=== PATIENT | female | born 1965 | race Caucasian/White ===

== ENCOUNTER 2020-11-04 20:36 | Observation (INO) ==
[2020-11-04] MEDS ORDERED: Isovue-370 500 ML BOTTLE IVP ONE (20:58)
[2020-11-04] MEDS ORDERED: Ondansetron 4 MG/2 ML VIAL IVP STA (20:59)
[2020-11-04 21:43] LABS: Lipase 88 Units/L (11-82)
[2020-11-04 21:45] LABS: Troponin I < 0.03 ng/mL (< 0.04)
[2020-11-04] MEDS ORDERED: Morphine Sulfate 2 MG/ML SYRINGE IVP STA (22:29)
[2020-11-04] MEDS ORDERED: *HR* OxyCODONE Immed Rel 5 MG TABLET PO PRN (23:40)
[2020-11-04] MEDS ORDERED: Acetaminophen 325 MG TABLET PO PRN (23:40)
[2020-11-04] MEDS ORDERED: Ondansetron 4 MG/2 ML VIAL IVP PRN (23:40)
[2020-11-04] MEDS ORDERED: Naloxone 0.4 MG/ML INJ IVP PRN (23:40)
[2020-11-04] MEDS ORDERED: *HR* Promethazine 25 MG/ML VIAL IM PRN (23:40)
[2020-11-05] MEDS: Ringers Solution, Lactated 1,000 ML IVC SCH ×2 (00:26→07:57)
[2020-11-05] MEDS ORDERED: *HR* Heparin 5,000 UNIT/ML VIAL SQ SCH (06:00)
[2020-11-05 08:09] LABS: Prothrombin Time 11.5 Seconds (9.4-12.1)
[2020-11-05 08:14] LABS: Basophils % 0.5 %; Eosinophils # 0.2 K/mcL (0.0-0.6); Eosinophils % 2.8 %; Hematocrit 38.1 % (35.3-44.9); Hemoglobin 12.1 g/dL (11.5-15.4); Immature Granulocytes % 0.5 % (0-4); Lymphocytes # 2.3 K/mcL (0.6-4.6); Lymphocytes % 35.9 %; Mean Corpuscular HGB Conc 31.8 g/dL (31.6-35.5); Mean Corpuscular Hemoglobin 27.5 pg (28.0-33.3); Mean Corpuscular Volume 86.6 fL (83.0-100.0); Mean Platelet Volume 9.7 fL (9.4-12.4); Monocytes # 0.5 K/mcL (0.0-1.3); Monocytes % 8.3 %; Neutrophils # 3.3 K/mcL (1.6-8.9); Platelet Count 293 K/mcL (140-400); Red Cell Distribution Width 13.5 % (11.5-14.5); White Blood Count 6.4 K/mcL (4.3-11.1)
[2020-11-05 08:23] LABS: Alanine Aminotransferase 205 Units/L (7-52); Albumin 3.7 g/dL (3.5-5.7); Albumin/Globulin Ratio 1.4 (1.1-2.2); Alkaline Phosphatase 107 Units/L (34-104); Aspartate Amino Transferase 63 Units/L (13-39); BUN/Creatinine Ratio 17 (6-26); Bilirubin,Total 0.5 mg/dL (0.3-1.0); Blood Urea Nitrogen 12 mg/dL (6-20); Calcium 8.7 mg/dL (8.6-10.3); Carbon Dioxide 29 mEq/L (23-29); Chloride 103 mEq/L (98-107); Chol/HDL Ratio 5.8 (0-4.9); Cholesterol 221 mg/dL (< 200); Globulin 2.6 g/dL (2.4-3.5); Glucose 105 mg/dL (70-105); HDL Cholesterol 38 mg/dL (40-59); LDL Cholesterol,Calculated 140 mg/dL (< 100); Magnesium 2.1 mg/dL (1.6-2.6); Osmolality,Calculated 288 (280-300); Potassium 3.1 mEq/L (3.5-5.1); Sodium 139 mEq/L (136-145); Total Protein 6.3 g/dL (6.4-8.9); Triglycerides 217 mg/dL (< 150); eGFR For African Americans > 60 (> 60); eGFR For Non-African Americans > 60 (> 60)
[2020-11-05] MEDS ORDERED: Prochlorperazine 10 MG/2 ML VIAL IVP PRN ×2 (08:34→12:59)
[2020-11-05 08:46] LABS: Hepatitis B Surface Antigen Nonreactive (Nonreactive)
[2020-11-05 09:15] LABS: Hepatitis B Core IgM Nonreactive (Nonreactive); Hepatitis C Virus Antibody Nonreactive (Nonreactive)
[2020-11-05 09:17] LABS: Hepatitis A Antibody IgM Nonreactive (Nonreactive)
[2020-11-05] MEDS ORDERED: Isovue-300 50ML VIAL ONE (10:14)
[2020-11-05 10:15] LABS: Adenovirus Not Detected (Not Detect); Bordetella Pertussis Not Detected (Not Detect); Chlamydophila pneumoniae Not Detected (Not Detect); Coronavirus 229E Not Detected (Not Detect); Coronavirus HKU1 Not Detected (Not Detect); Coronavirus NL63 Not Detected (Not Detect); Coronavirus OC43 Not Detected (Not Detect); Human Metapneumovirus Not Detected (Not Detect); Human Rhinovirus/Enterovirus Not Detected (Not Detect); Influenza A Subtype 2009 H1 Not Detected (Not Detect); Influenza B Not Detected (Not Detect); Mycoplasma pneumoniae Not Detected (Not Detect); Parainfluenza Virus 1 Not Detected (Not Detect); Parainfluenza Virus 2 Not Detected (Not Detect); Parainfluenza Virus 3 Not Detected (Not Detect); Parainfluenza Virus 4 Not Detected (Not Detect); Respiratory Syncytial Virus Not Detected (Not Detect); SARS-CoV-2 Not Detected (Not Detect)
[2020-11-05] MEDS ORDERED: clonazePAM 0.5 MG TABLET PO PRN ×2 (10:24→12:59)
[2020-11-05] MEDS ORDERED: *HR* HYDROmorphone PF 0.5 MG/0.5 ML SYRINGE IVP PRN ×2 (10:25→12:59)
[2020-11-05] MEDS ORDERED: Potassium Chloride 20 MEQ, Lidocaine 1% 2 ML in 0.9 % Sodium Chloride 250 ML IVPB ONE ×2 (10:25→12:59)
[2020-11-05] MEDS ORDERED: Ondansetron 4 MG/2 ML VIAL IVP PRN ×3 (10:25→12:59)
[2020-11-05] MEDS ORDERED: Famotidine 20 MG/2 ML VIAL ONE (10:29)
[2020-11-05] MEDS ORDERED: Dexamethasone 4 MG/ML VIAL ONE (10:35)
[2020-11-05] MEDS ORDERED: Lidocaine -MPF 2% 2 ML VIAL ONE (10:35)
[2020-11-05] MEDS ORDERED: *HR* Propofol 200 MG/20 ML VIAL IVP ONE (10:35)
[2020-11-05] MEDS ORDERED: Lidocaine -MPF 4% 5 ML AMPUL ONE (10:35)
[2020-11-05] MEDS ORDERED: *HR* Rocuronium Bromide 50 MG/5 ML VIAL ONE (10:35)
[2020-11-05] MEDS ORDERED: *HR* FentaNYL (PF) 100 MCG/2 ML VIAL ONE (10:35)
[2020-11-05] MEDS ORDERED: cefOXitin 1,000 MG, 0.9 % Sodium Chloride 1,000 ML IR ONE ×2 (11:00→12:59)
[2020-11-05] MEDS ORDERED: *HR* PHENYLEPHRINE 1,000 MCG/10 ML SYRINGE IVP ONE (11:14)
[2020-11-05] MEDS ORDERED: CefOXitin 2,000 MG VIAL ONE (11:14)
[2020-11-05] MEDS ORDERED: *HR* HYDROMORPHONE 2 MG/ML VIAL ONE (11:16)
[2020-11-05] MEDS ORDERED: *HR* Labetalol 20 MG/4 ML SYRINGE IVP PRN ×2 (11:56→12:59)
[2020-11-05] MEDS ORDERED: *HR* Promethazine 25 MG/ML VIAL IM PRN (12:59)
[2020-11-05] MEDS ORDERED: Naloxone 0.4 MG/ML INJ IVP PRN (12:59)
[2020-11-05] MEDS ORDERED: Acetaminophen 325 MG TABLET PO PRN (12:59)
[2020-11-05] MEDS ORDERED: Ringers Solution, Lactated 1,000 ML IVC SCH (12:59)
[2020-11-05] MEDS: *HR* Heparin 5,000 UNIT/ML VIAL SQ SCH ×2 (14:06→20:04)
[2020-11-05] MEDS: *HR* OxyCODONE Immed Rel 5 MG TABLET PO PRN ×2 (15:11→23:14)
[2020-11-05] MEDS ORDERED: cefOXitin 2,000 MG in 0.9 % Sodium Chloride Mini Bag 100 ML IVPB SCH (16:00)
[2020-11-05] MEDS: cefOXitin 2,000 MG in Water for inj. (sterile) 20 ML IVP SCH ×2 (16:11→23:11)
[2020-11-05] MEDS: Pregabalin 75 MG CAPSULE PO SCH (20:05)
[2020-11-05] MEDS ORDERED: Pregabalin 75 MG CAPSULE PO SCH (21:00)
[2020-11-06 02:12] LABS: Basophils % 0.2 %; Hematocrit 34.9 % (35.3-44.9); Hemoglobin 10.9 g/dL (11.5-15.4); Immature Granulocytes % 0.3 % (0-4); Lymphocytes # 1.7 K/mcL (0.6-4.6); Lymphocytes % 13.8 %; Mean Corpuscular HGB Conc 31.2 g/dL (31.6-35.5); Mean Corpuscular Hemoglobin 27.2 pg (28.0-33.3); Mean Platelet Volume 9.8 fL (9.4-12.4); Monocytes # 0.7 K/mcL (0.0-1.3); Monocytes % 5.5 %; Platelet Count 290 K/mcL (140-400); Red Blood Count 4.01 M/mcL (3.82-4.97); Red Cell Distribution Width 13.4 % (11.5-14.5); Segmented Neutrophils % 80.2 %
[2020-11-06 02:14] LABS: White Blood Count 12.5 K/mcL (4.3-11.1)
[2020-11-06 02:33] LABS: Alanine Aminotransferase 174 Units/L (7-52); Albumin 3.5 g/dL (3.5-5.7); Albumin/Globulin Ratio 1.5 (1.1-2.2); Alkaline Phosphatase 99 Units/L (34-104); Aspartate Amino Transferase 52 Units/L (13-39); BUN/Creatinine Ratio 12 (6-26); Bilirubin,Total 0.5 mg/dL (0.3-1.0); Blood Urea Nitrogen 8 mg/dL (6-20); Calcium 8.5 mg/dL (8.6-10.3); Carbon Dioxide 26 mEq/L (23-29); Chloride 104 mEq/L (98-107); Globulin 2.4 g/dL (2.4-3.5); Glucose 110 mg/dL (70-105); Osmolality,Calculated 287 (280-300); Phosphorous 3.3 mg/dL (2.7-4.5); Potassium 3.5 mEq/L (3.5-5.1); Sodium 139 mEq/L (136-145); Total Protein 5.9 g/dL (6.4-8.9); eGFR For African Americans > 60 (> 60); eGFR For Non-African Americans > 60 (> 60)
[2020-11-06] MEDS: *HR* Heparin 5,000 UNIT/ML VIAL SQ SCH ×2 (06:18→14:14)
[2020-11-06 08:22] VITALS: BP 130/80
[2020-11-06] MEDS ORDERED: hydroCHLOROthiazide 25 MG TABLET PO SCH ×2 (09:00)
[2020-11-06] MEDS: cefOXitin 2,000 MG in Water for inj. (sterile) 20 ML IVP SCH (10:01)
[2020-11-06] MEDS: Pregabalin 75 MG CAPSULE PO SCH (10:03)
[2020-11-06] MEDS: *HR* OxyCODONE Immed Rel 5 MG TABLET PO PRN (14:37)
== END 2020-11-06 15:10 | disposition home or self-care (01) ==
LOC: 2ANU 20:36 → EMEROOARM 20:36 → SUATTDRO 22:46 → 3ANU 23:12
PROVIDERS: ADMIT Internal Medicine; ATTEND Internal Medicine